=== PATIENT | male | born 1975 | race Caucasian/White ===

== ENCOUNTER 2022-10-22 03:13 | Outpatient (CLI) | payer BC, SELFPAY ==
[2022-10-22 07:18] LABS: Abs Immature Grans 0.01 10^3/uL (0.0-0.06); Absolute Basophil Count 0.05 10^3/uL (0.0-0.2); Absolute Eosinophil Count 0.32 10^3/uL (0.0-0.7); Absolute Lymphocyte Count 2.82 10^3/uL (1.2-3.4); Absolute Monocyte Count 0.62 10^3/uL (0.1-0.8); Absolute Neutrophil Count 3.27 10^3/uL (1.2-6.7); Basophils % 0.7; Eosinophils % 4.5; HCT 45.5 % (40.0-50.0); HGB 14.5 g/dL (13.5-17.5); Immature Grans % 0.1; Lymphocytes % 39.8; MCH 24.5 pg (27.0-33.0); MCHC 31.9 % (32.0-36.0); MCV 77 fL (80-95); Monocytes % 8.7; Neutrophils % 46.2; Platelet Count 243 10^3/uL (130-400); RBC 5.93 10^6/uL (4.36-5.78); RDW 14.6 % (11.8-14.1); RDW-SD 39.8 fL; WBC 7.09 10^3/uL (4.4-10.8)
[2022-10-22 08:11] LABS: Anion Gap 6.7 mmol/L (3-11); BUN 16 mg/dL (7-18); CO2 30.3 mmol/L (21.0-32.0); CREATININE 1.1 mg/dL (0.70-1.30); Calcium 8.8 mg/dL (8.5-10.1); Calculated LDL 84 mg/dL (<100); Chloride 104 mmol/L (98-107); Cholesterol 151 mg/dL (<200); Estimated GFR 82.29 (mL/min/1.73m2); Glucose 108 mg/dL (74-106); HDL Cholesterol 34 mg/dL (40-60); Potassium 4.3 mmol/L (3.5-5.1); Sodium 141 mmol/L (136-145); TSH (W/Ref FT4) 3.49 uIU/mL (0.36-3.74); Triglyceride 169 mg/dL (<150)
[2022-10-22 08:43] LABS: Hemoglobin A1C 5.7 % (<5.7)
== END 2022-10-22 03:14 | disposition home or self-care (01) ==
LOC: LBO 03:13
PROVIDERS: PCP Nurse Practitioner Family; Visit Provider Nurse Practitioner Family
DX: Z00.00 Encounter for general adult medical examination without abnormal findings (principal); R06.09 Other forms of dyspnea
CPT/HCPCS: 36415; 80048; 80061; 83036; 84443; 85025

== ENCOUNTER 2023-10-01 07:16 | Outpatient (CLI) | payer BC, SELFPAY ==
[2023-10-01 12:11] LABS: HCT 45.5 % (40.0-50.0); HGB 14.4 g/dL (13.5-17.5); MCH 25.2 pg (27.0-33.0); MCHC 31.6 % (32.0-36.0); MCV 80 fL (80-95); MPV 9.6 fL (8.0-11.0); Platelet Count 264 10^3/uL (130-400); RBC 5.71 10^6/uL (4.36-5.78); RDW 14.6 % (11.8-14.1); RDW-SD 41.9 fL; WBC 6.32 10^3/uL (4.4-10.8)
[2023-10-01 12:25] LABS: Hemoglobin A1C 5.8 % (<5.7)
[2023-10-01 12:51] LABS: Anion Gap 8.9 mmol/L (3-11); BUN 22 mg/dL (7-18); CO2 29.1 mmol/L (21.0-32.0); CREATININE 1.1 mg/dL (0.70-1.30); Calcium 8.9 mg/dL (8.5-10.1); Chloride 105 mmol/L (98-107); Estimated GFR 81.78 (mL/min/1.73m2); Ferritin 308 ng/mL (26-388); Folate 7.9 ng/mL (8.6-20.0); Glucose 97 mg/dL (74-106); Potassium 3.9 mmol/L (3.5-5.1); Sodium 143 mmol/L (136-145); Vitamin B12 425 pg/mL (193-986)
[2023-10-01 18:29] LABS: PSA, Screening 0.4 ng/mL (<=3.5)
[2023-10-01 19:14] LABS: Hepatitis C Ab w Rflx HCV PCR Negative (Negative)
[2023-10-04 15:08] LABS: Hemoglobinopathy Interpretat (See Note)
== END 2023-10-01 07:17 | disposition home or self-care (01) ==
LOC: LOS 07:16
PROVIDERS: PCP Nurse Practitioner Family; Referring Provider Nurse Practitioner Family; Visit Provider Nurse Practitioner Family
DX: D75.1 Secondary polycythemia (principal); R71.8 Other abnormality of red blood cells; Z00.00 Encounter for general adult medical examination without abnormal findings; Z12.5 Encounter for screening for malignant neoplasm of prostate
CPT/HCPCS: 36415; 80048; 84153; 85027; 86803; 82607; 82728; 82746; 83020; 83036